=== PATIENT | female | born 1965 | race Caucasian/White ===

== ENCOUNTER → 2016-10-23 | Outpatient (CLI) | payer BC, OTHER ==
--- NOTE | 2016-10-23 16:32 | P.HPBAR ---
Bariatric H&P - History & Physicial H&P Date: 10/23/16 History & Physicial: Visit/CC: sleeve follow-up Patient initial contact: Initial weight: 113.2 kg Initial weight in pounds: 249.56 Height: 5 ft 4.5 in Initial BMI: 42.1 Last weight: Current weight: 101.321 kg Current weight in pounds: 223.00 Current BMI: 37.7 [place] body weight (based on NIH guidelines): 55.565 kg Excess body weight loss: 20.9% The patient is a 51 year-old F who presents for Bariatric Assessment. Patient presents for sleeve follow-up. She is doing well. She lost approximately 26 pounds since surgery. She still has some minimal GERD symptoms. Past Medical History Past Medical History: GERD/Reflux Additional Past Medical History / Comment(s): HIATAL HERNIA, VARICOSE VEINS. History of Any Multi-Drug Resistant Organisms: None Reported Past Surgical History: Section, Cholecystectomy, Uterine Ablation Additional Past Surgical History / Comment(s): 08/08/16 Laparoscopic sleeve gastrectomy with hiatal hernia repair. Other surgical HX: PILONIDAL CYST REMOVED,EGD, OVARIAN CYST. Past Anesthesia/Blood Transfusion Reactions: Postoperative Nausea & Vomiting ( PONV) Past Psychological History: No Psychological Hx Reported Additional Psychological History / Comment(s): Pt has an adult manish who lives with her. She is independent. She drives. Smoking Status: Current some day smoker Past Alcohol Use History: None Reported Additional Past Alcohol Use History / Comment(s): SMOKES OCCASIONALLY-1 pack will last a week or more. SMOKING ON AND OFF FOR 20 YEARS. Past Drug Use History: None Reported - Past Family History Father Family Medical History: No Reported History Sister(s) Additional Family Medical History / Comment(s): Crohn's and Colitis Mother Family Medical History: Cancer Additional Family Medical History / Comment(s): BLADDER CA Surgical - Exam Vital Signs Temp Pulse Resp BP 98.1 F 54 L 16 159/84 10/23/16 15:10 10/23/16 15:10 10/23/16 15:10 10/23/16 15:10 - General well developed, no distress - Eyes PERRL - ENT normal pinna - Neck no masses - Respiratory normal expansion - Cardiovascular Rhythm: regular - Abdomen Abdomen: soft, non tender Bariatric Assessment & Plan Plan: Status post sleeve gastrectomy. Patient is doing quite well. Her GERD symptoms will be observed. She'll follow-up one month. Bariatric Checklist Checklist: Plan: Checklist: EGD: 1. Hiatal hernia: 2. H. Pylori: HgbA1c: Vitamin D: Smoking: Current some day smoker Primary care physician referral: Dr. walker Psychiatry clearance: Cardiology clearance: Sleep study: Diet journal: VTE risk score: VTE risk level: Rehab needs at discharge:
== END | disposition home or self-care (01) ==
CPT/HCPCS: 99211

== ENCOUNTER → 2016-11-20 | Outpatient (CLI) | payer BC, OTHER ==
[2016-11-20 16:28] VITALS: BP 145/98; PULSE 16; RESP 16; TEMP 97; BMI 36.6
[2016-11-20 16:32] LABS: CH 30.8; CHCM 34.3; HCT 43.4 % (34.0-46.0); HDW 2.41; HGB 14.3 gm/dL (11.4-16.0); MCH 29.6 pg (25.0-35.0); MCHC 32.8 g/dL (31.0-37.0); MCV 90.2 fL (80.0-100.0); Mean Platelet Volume 7.9; RBC 4.81 m/uL (3.80-5.40); RDW 12.3 % (11.5-15.5); WBC 9.8 k/uL (3.8-10.6)
[2016-11-20 16:41] LABS: ALT 36 U/L (9-52); AST 18 U/L (14-36); Alkaline Phosphatase 66 U/L (38-126); Anion Gap 8 mmol/L; Blood Urea Nitrogen 14 mg/dL (7-17); Calcium 9.6 mg/dL (8.4-10.2); Carbon Dioxide 30 mmol/L (22-30); Chloride 103 mmol/L (98-107); Glucose 84 mg/dL (74-99); Non-African American GFR(MDRD) >60 (>60 ml/min/1.73 sqM); Potassium 4.2 mmol/L (3.5-5.1); Sodium 141 mmol/L (137-145); Total Bilirubin 0.4 mg/dL (0.2-1.3); Total Protein 7.1 g/dL (6.3-8.2)
[2016-11-20 16:50] LABS: Total Iron Binding Capacity 299 ug/dL (265-497)
--- NOTE | 2016-12-11 13:24 | P.HPBAR ---
Bariatric H&P - History & Physicial H&P Date: 11/20/16 History & Physicial: Visit/CC: Sleeve follow-up Patient initial contact: Initial weight: 113.2 kg Initial weight in pounds: 249.56 Height: 5 ft 4.5 in Initial BMI: 42.1 Last weight: Current weight: 98.43 kg Current weight in pounds: 217.00 Current BMI: 36.6 [place] body weight (based on NIH guidelines): 55.565 kg Excess body weight loss: 25.6% The patient is a 51 year-old F who presents for Bariatric Assessment. The patient lost prostate 5 pounds since her last visit. She's had some minimal GERD. Past Medical History Past Medical History: GERD/Reflux Additional Past Medical History / Comment(s): HIATAL HERNIA, VARICOSE VEINS. History of Any Multi-Drug Resistant Organisms: None Reported Past Surgical History: Section, Cholecystectomy, Uterine Ablation Additional Past Surgical History / Comment(s): 08/08/16 Laparoscopic sleeve gastrectomy with hiatal hernia repair. Other surgical HX: PILONIDAL CYST REMOVED,EGD, OVARIAN CYST. Past Anesthesia/Blood Transfusion Reactions: Postoperative Nausea & Vomiting ( PONV) Past Psychological History: No Psychological Hx Reported Additional Psychological History / Comment(s): Pt has an adult manish who lives with her. She is independent. She drives. Smoking Status: Current some day smoker Past Alcohol Use History: None Reported Additional Past Alcohol Use History / Comment(s): SMOKES OCCASIONALLY-1 pack will last a week or more. SMOKING ON AND OFF FOR 20 YEARS. Past Drug Use History: None Reported - Past Family History Father Family Medical History: No Reported History Sister(s) Additional Family Medical History / Comment(s): Crohn's and Colitis Mother Family Medical History: Cancer Additional Family Medical History / Comment(s): BLADDER CA Surgical - Exam Vital Signs Temp Pulse Resp BP 97.0 F L 16 L 16 145/98 11/20/16 16:08 11/20/16 16:08 11/20/16 16:08 11/20/16 16:08 - General well developed, no distress - Eyes PERRL - ENT normal pinna - Respiratory normal expansion - Cardiovascular Rhythm: regular - Abdomen Abdomen: soft, non tender Results - Labs 11/20/16 16:10 11/20/16 16:10 Bariatric Assessment & Plan Plan: The patient is doing well. Her GERD symptoms are minimal and will be observed. She'll follow-up in 2 months. Bariatric Checklist Checklist: Plan: Checklist: EGD: 1. Hiatal hernia: 2. H. Pylori: HgbA1c: Vitamin D: Smoking: Current some day smoker Primary care physician referral: Dr. walker Psychiatry clearance: Cardiology clearance: Sleep study: Diet journal: VTE risk score: VTE risk level: Rehab needs at discharge:
== END | disposition home or self-care (01) ==
LOC: BARWHC3 14:59
PROVIDERS: ATTEND Surgery
DX: Z48.815 Encounter for surgical aftercare following surgery on the digestive system (principal); Z71.3 Dietary counseling and surveillance; E66.01 Morbid (severe) obesity due to excess calories; Z68.36 Body mass index [BMI] 36.0-36.9, adult; Z98.84 Bariatric surgery status; F17.200 Nicotine dependence, unspecified, uncomplicated
CPT/HCPCS: 80053; 82306; 83550; 85027; 99211

== ENCOUNTER → 2016-12-18 | Outpatient (CLI) | payer BC, OTHER ==
[2016-12-18 16:14] LABS: CH 30.4; CHCM 33.1; HCT 43.6 % (34.0-46.0); HDW 2.29; HGB 14.2 gm/dL (11.4-16.0); MCH 29.9 pg (25.0-35.0); MCHC 32.5 g/dL (31.0-37.0); Mean Platelet Volume 7.1; RBC 4.74 m/uL (3.80-5.40); RDW 12.5 % (11.5-15.5); WBC 7.1 k/uL (3.8-10.6)
[2016-12-18 16:15] VITALS: BP 164/89; PULSE 92; RESP 16; TEMP 97.9; BMI 36.7
--- NOTE | 2016-12-18 16:19 | P.HPBAR ---
Bariatric H&P - History & Physicial H&P Date: 12/18/16 History & Physicial: Visit/CC: Sleeve follow-up Patient initial contact: Initial weight: 113.2 kg Initial weight in pounds: 249.56 Height: 5 ft 4.5 in Initial BMI: 42.1 Last weight: Current weight: 98.685 kg Current weight in pounds: 217.00 Current BMI: 36.7 [place] body weight (based on NIH guidelines): 55.565 kg Excess body weight loss: 25.6% The patient is a 51 year-old F who presents for Bariatric Assessment. She presents today for sleeve follow-up. She's had some mild complaints of GERD. Her weight has been stable she's not lost any weight in the last month. Past Medical History Past Medical History: GERD/Reflux Additional Past Medical History / Comment(s): HIATAL HERNIA, VARICOSE VEINS. History of Any Multi-Drug Resistant Organisms: None Reported Past Surgical History: Section, Cholecystectomy, Uterine Ablation Additional Past Surgical History / Comment(s): 08/08/16 Laparoscopic sleeve gastrectomy with hiatal hernia repair. Other surgical HX: PILONIDAL CYST REMOVED,EGD, OVARIAN CYST. Past Anesthesia/Blood Transfusion Reactions: Postoperative Nausea & Vomiting ( PONV) Past Psychological History: No Psychological Hx Reported Additional Psychological History / Comment(s): Pt has an adult manish who lives with her. She is independent. She drives. Smoking Status: Current some day smoker Past Alcohol Use History: None Reported Additional Past Alcohol Use History / Comment(s): SMOKES OCCASIONALLY-1 pack will last a week or more. SMOKING ON AND OFF FOR 20 YEARS. Past Drug Use History: None Reported - Past Family History Father Family Medical History: No Reported History Sister(s) Additional Family Medical History / Comment(s): Crohn's and Colitis Mother Family Medical History: Cancer Additional Family Medical History / Comment(s): BLADDER CA Surgical - Exam Vital Signs Temp Pulse Resp BP 97.9 F 92 16 164/89 12/18/16 16:09 12/18/16 16:09 12/18/16 16:09 12/18/16 16:09 - General well developed, no distress - Eyes PERRL - ENT normal pinna - Neck no masses - Respiratory normal expansion - Cardiovascular Rhythm: regular - Abdomen Abdomen: soft, non tender Results - Labs 12/18/16 15:53 Bariatric Assessment & Plan Plan: Status post sleeve gastrectomy. Patient is doing fairly well. She will watch her intake of high calorie liquids or soft food. Her GERD symptoms will be continued to be treated with omeprazole. Bariatric Checklist Checklist: Plan: Checklist: EGD: 1. Hiatal hernia: 2. H. Pylori: HgbA1c: Vitamin D: Smoking: Current some day smoker Primary care physician referral: Dr. walker Psychiatry clearance: Cardiology clearance: Sleep study: Diet journal: VTE risk score: VTE risk level: Rehab needs at discharge:
[2016-12-18 16:27] LABS: ALT 47 U/L (9-52); AST 23 U/L (14-36); Alkaline Phosphatase 64 U/L (38-126); Anion Gap 9 mmol/L; Blood Urea Nitrogen 17 mg/dL (7-17); Calcium 9.5 mg/dL (8.4-10.2); Carbon Dioxide 30 mmol/L (22-30); Chloride 100 mmol/L (98-107); Glucose 90 mg/dL (74-99); Non-African American GFR(MDRD) >60 (>60 ml/min/1.73 sqM); Potassium 4.4 mmol/L (3.5-5.1); Sodium 139 mmol/L (137-145); Total Bilirubin 0.5 mg/dL (0.2-1.3); Total Protein 6.8 g/dL (6.3-8.2)
[2016-12-18 17:29] LABS: Vitamin B12 535 pg/mL (239-931)
== END | disposition home or self-care (01) ==
LOC: BARWHC3 14:52
PROVIDERS: ATTEND Surgery
DX: Z48.815 Encounter for surgical aftercare following surgery on the digestive system (principal); Z98.84 Bariatric surgery status; K21.9 Gastro-esophageal reflux disease without esophagitis; E66.01 Morbid (severe) obesity due to excess calories; Z68.36 Body mass index [BMI] 36.0-36.9, adult; F17.200 Nicotine dependence, unspecified, uncomplicated; Z79.899 Other long term (current) drug therapy
CPT/HCPCS: 36415; 80053; 82306; 82607; 82746; 84425; 84590; 85027; 99211

== ENCOUNTER → 2017-02-05 | Outpatient (CLI) | payer BC, OTHER ==
[2017-02-05 15:08] VITALS: BP 125/65; PULSE 52; RESP 15; TEMP 98.2; BMI 35.9
--- NOTE | 2017-02-05 16:22 | P.HPBAR ---
Bariatric H&P - History & Physicial H&P Date: 02/05/17 History & Physicial: Visit/CC: sleeve f/u Patient initial contact: Initial weight: 113.2 kg Initial weight in pounds: 249.56 Height: 5 ft 4.5 in Initial BMI: 42.1 Last weight: Current weight: 96.298 kg Current weight in pounds: 212.30 Current BMI: 35.9 [place] body weight (based on NIH guidelines): 55.565 kg Excess body weight loss: 29.3% The patient is a 51 year-old F who presents for Bariatric Assessment. Patient rents today for sleeve gastrectomy fall. She's doing quite well. She's had good weight loss. She has some mild complaints of GERD Past Medical History Past Medical History: GERD/Reflux Additional Past Medical History / Comment(s): HIATAL HERNIA, VARICOSE VEINS. History of Any Multi-Drug Resistant Organisms: None Reported Past Surgical History: Section, Cholecystectomy, Uterine Ablation Additional Past Surgical History / Comment(s): 08/08/16 Laparoscopic sleeve gastrectomy with hiatal hernia repair. Other surgical HX: PILONIDAL CYST REMOVED,EGD, OVARIAN CYST. Past Anesthesia/Blood Transfusion Reactions: Postoperative Nausea & Vomiting ( PONV) Past Psychological History: No Psychological Hx Reported Additional Psychological History / Comment(s): Pt has an adult manish who lives with her. She is independent. She drives. Smoking Status: Current some day smoker Past Alcohol Use History: None Reported Additional Past Alcohol Use History / Comment(s): SMOKES OCCASIONALLY-1 pack will last a week or more. SMOKING ON AND OFF FOR 20 YEARS. Past Drug Use History: None Reported - Past Family History Father Family Medical History: No Reported History Sister(s) Additional Family Medical History / Comment(s): Crohn's and Colitis Mother Family Medical History: Cancer Additional Family Medical History / Comment(s): BLADDER CA Surgical - Exam Vital Signs Temp Pulse Resp BP 98.2 F 52 L 15 125/65 02/05/17 15:02 02/05/17 15:02 02/05/17 15:02 02/05/17 15:02 - General well developed - Neck no masses - Respiratory normal expansion - Cardiovascular Rhythm: regular - Abdomen Abdomen: soft, non tender Bariatric Assessment & Plan Plan: Status post sleeve yesterday. Patient doing quite well. Her GERD symptoms are minimal and will be observed. She'll follow-up in one month. Bariatric Checklist Checklist: Plan: Checklist: EGD: 1. Hiatal hernia: 2. H. Pylori: HgbA1c: Vitamin D: Smoking: Current some day smoker Primary care physician referral: Dr. walker Psychiatry clearance: Cardiology clearance: Sleep study: Diet journal: VTE risk score: VTE risk level: Rehab needs at discharge:
[2017-02-05 16:43] LABS: CHCM 34.7; HCT 42.6 % (34.0-46.0); HDW 2.34; HGB 14.8 gm/dL (11.4-16.0); MCH 31.1 pg (25.0-35.0); MCHC 34.6 g/dL (31.0-37.0); MCV 89.6 fL (80.0-100.0); Mean Platelet Volume 6.9; RBC 4.75 m/uL (3.80-5.40); RDW 12.1 % (11.5-15.5); WBC 6.6 k/uL (3.8-10.6)
[2017-02-05 16:53] LABS: ALT 35 U/L (9-52); AST 19 U/L (14-36); Alkaline Phosphatase 59 U/L (38-126); Anion Gap 8 mmol/L; Blood Urea Nitrogen 17 mg/dL (7-17); Calcium 9.5 mg/dL (8.4-10.2); Carbon Dioxide 29 mmol/L (22-30); Chloride 102 mmol/L (98-107); Glucose 88 mg/dL (74-99); Iron 84 ug/dL (37-170); Non-African American GFR(MDRD) >60 (>60 ml/min/1.73 sqM); Potassium 4.4 mmol/L (3.5-5.1); Sodium 139 mmol/L (137-145); Total Bilirubin 0.6 mg/dL (0.2-1.3); Total Protein 7.2 g/dL (6.3-8.2)
[2017-02-05 17:03] LABS: % Iron Saturation 27.8 % (20-50); Prealbumin 27 mg/dL (18-36); Total Iron Binding Capacity 302 ug/dL (265-497)
[2017-02-05 17:41] LABS: Vitamin B12 572 pg/mL (239-931)
== END | disposition home or self-care (01) ==
LOC: BARWHC3 14:44
PROVIDERS: ATTEND Surgery
DX: K21.9 Gastro-esophageal reflux disease without esophagitis (principal); Z98.84 Bariatric surgery status; E55.9 Vitamin D deficiency, unspecified; E66.01 Morbid (severe) obesity due to excess calories
CPT/HCPCS: 80053; 82306; 82607; 83540; 83550; 84134; 84425; 84590; 85027; 97803; 99211

== ENCOUNTER 2017-03-03 21:34 | Emergency (ER) | payer BC, OTHER ==
[2017-03-03 21:42] VITALS: RESP 18
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
--- NOTE | 2017-03-03 22:27 | XR ---
EXAM: XR Left Wrist Complete, 3 or More Views. CLINICAL HISTORY: Reason: Pain TECHNIQUE: Frontal, lateral and oblique views of the left wrist. COMPARISON: No relevant prior studies available. FINDINGS: Bones: Unremarkable. No acute fracture. Joints: Unremarkable. No dislocation. Soft tissues: Unremarkable. No radiopaque foreign body. IMPRESSION: Normal left wrist.
--- NOTE | 2017-03-03 22:31 | XR ---
EXAM: XR Left Hand Complete, 3 or More Views. CLINICAL HISTORY: Reason: Pain TECHNIQUE: Frontal, lateral and oblique views of the left hand. COMPARISON: No relevant prior studies available. FINDINGS: Bones: Unremarkable. No acute fracture. Joints: Unremarkable. No dislocation. Soft tissues: Unremarkable. No radiopaque foreign body. IMPRESSION: Normal left hand.
[2017-03-03 23:07] VITALS: BP 132/64; PULSE 56; TEMP 97.9
== END 2017-03-03 23:07 | disposition home or self-care (01) ==
LOC: EC 21:34
DX: S63.92XA Sprain of unspecified part of left wrist and hand, initial encounter (principal); F17.200 Nicotine dependence, unspecified, uncomplicated; Z79.899 Other long term (current) drug therapy; Z88.6 Allergy status to analgesic agent; Z91.013 Allergy to seafood; Y08.89XA Assault by other specified means, initial encounter
CPT/HCPCS: 99283

== ENCOUNTER → 2017-04-02 | Outpatient (CLI) | payer BC, OTHER ==
[2017-04-02 16:31] VITALS: BP 122/84; PULSE 58; RESP 16; TEMP 97.9; BMI 34.6
--- NOTE | 2017-04-16 17:02 | P.HPBAR ---
Bariatric H&P - History & Physicial H&P Date: 04/02/17 History & Physicial: Visit/CC: sleeve f/u Patient initial contact: Initial weight: 113.2 kg Initial weight in pounds: 249.56 Height: 5 ft 4.5 in Initial BMI: 42.1 Last weight: Current weight: 92.986 kg Current weight in pounds: 205.00 Current BMI: 34.6 [place] body weight (based on NIH guidelines): 55.565 kg Excess body weight loss: 35.0% The patient is a 51 year-old F who presents for Bariatric Assessment. The patient is status post sleeve gastrectomy. She is doing quite well. She has lost another 8 pounds. She's has mild GERD. Past Medical History Past Medical History: GERD/Reflux Additional Past Medical History / Comment(s): HIATAL HERNIA, VARICOSE VEINS. History of Any Multi-Drug Resistant Organisms: None Reported Past Surgical History: Section, Cholecystectomy, Uterine Ablation Additional Past Surgical History / Comment(s): 08/08/16 Laparoscopic sleeve gastrectomy with hiatal hernia repair. Other surgical HX: PILONIDAL CYST REMOVED,EGD, OVARIAN CYST. Past Anesthesia/Blood Transfusion Reactions: Postoperative Nausea & Vomiting ( PONV) Past Psychological History: No Psychological Hx Reported Additional Psychological History / Comment(s): Pt has an adult manish who lives with her. She is independent. She drives. Smoking Status: Current some day smoker Past Alcohol Use History: None Reported Additional Past Alcohol Use History / Comment(s): SMOKES OCCASIONALLY-1 pack will last a week or more. SMOKING ON AND OFF FOR 20 YEARS. Past Drug Use History: None Reported - Past Family History Father Family Medical History: No Reported History Sister(s) Additional Family Medical History / Comment(s): Crohn's and Colitis Mother Family Medical History: Cancer Additional Family Medical History / Comment(s): BLADDER CA Surgical - Exam Vital Signs Temp Pulse Resp BP 97.9 F 58 L 16 122/84 04/02/17 15:37 04/02/17 15:37 04/02/17 15:37 04/02/17 15:37 - General well developed - Abdomen Abdomen: soft, non tender Bariatric Assessment & Plan Plan: Status post sleeve yesterday. Patient doing quite well. Her GERD symptoms will be observed. Bariatric Checklist Checklist: Plan: Checklist: EGD: 1. Hiatal hernia: 2. H. Pylori: HgbA1c: Vitamin D: Smoking: Current some day smoker Primary care physician referral: Dr. walker Psychiatry clearance: Cardiology clearance: Sleep study: Diet journal: VTE risk score: VTE risk level: Rehab needs at discharge:
== END | disposition home or self-care (01) ==
LOC: BARWHC3 13:30
PROVIDERS: ATTEND Surgery
DX: Z09 Encounter for follow-up examination after completed treatment for conditions other than malignant neoplasm (principal); K21.9 Gastro-esophageal reflux disease without esophagitis; F17.200 Nicotine dependence, unspecified, uncomplicated; Z98.84 Bariatric surgery status
CPT/HCPCS: 99211

== ENCOUNTER → 2017-06-04 | Outpatient (CLI) | payer BC, OTHER ==
[2017-06-04 13:14] VITALS: BP 117/75; PULSE 72; RESP 20; TEMP 98.3; BMI 34.2
[2017-06-04 14:33] LABS: CH 31.7; CHCM 34.3; HCT 46.9 % (34.0-46.0); HDW 2.24; HGB 15.6 gm/dL (11.4-16.0); MCH 30.9 pg (25.0-35.0); MCHC 33.3 g/dL (31.0-37.0); MCV 92.9 fL (80.0-100.0); Mean Platelet Volume 8.1; RBC 5.05 m/uL (3.80-5.40); RDW 13.6 % (11.5-15.5); WBC 8.6 k/uL (3.8-10.6)
[2017-06-04 14:38] LABS: INR 1.1 (<1.2); Prothrombin Time 11.3 sec (9.0-12.0)
--- NOTE | 2017-06-04 14:43 | P.HPBAR ---
Bariatric H&P - History & Physicial H&P Date: 06/04/17 History & Physicial: Visit/CC: follow up Patient initial contact: Initial weight: 113.2 kg Initial weight in pounds: 249.56 Height: 5 ft 4.5 in Initial BMI: 42.1 Last weight: 205 Current weight: 92.079 kg Current weight in pounds: 203.00 Current BMI: 34.2 [place] body weight (based on NIH guidelines): 55.565 kg Excess body weight loss: 36.6% The patient is a 52 year-old F who presents for Bariatric Assessment. Patient presents today for sleeve gastrectomy follow-up. She has no significant complaints. She's had some mild GERD. She is requesting a refill of her Prilosec. Past Medical History Past Medical History: GERD/Reflux Additional Past Medical History / Comment(s): HIATAL HERNIA, VARICOSE VEINS. History of Any Multi-Drug Resistant Organisms: None Reported Past Surgical History: Section, Cholecystectomy, Uterine Ablation Additional Past Surgical History / Comment(s): 08/08/16 Laparoscopic sleeve gastrectomy with hiatal hernia repair. Other surgical HX: PILONIDAL CYST REMOVED,EGD, OVARIAN CYST. Past Anesthesia/Blood Transfusion Reactions: Postoperative Nausea & Vomiting ( PONV) Smoking Status: Former smoker - Past Family History Father Family Medical History: No Reported History Sister(s) Additional Family Medical History / Comment(s): Crohn's and Colitis Mother Family Medical History: Cancer Additional Family Medical History / Comment(s): BLADDER CA Surgical - Exam Vital Signs Temp Pulse Resp BP 98.3 F 72 20 117/75 06/04/17 13:11 06/04/17 13:11 06/04/17 13:11 06/04/17 13:11 - General well developed, no distress - Eyes PERRL - Abdomen Abdomen: soft, non tender Bariatric Assessment & Plan Plan: Status post sleeve yesterday. Patient's had good weight loss. Her Prilosec will be reordered. She'll follow-up in one month. Bariatric Checklist Checklist: Plan: Checklist: EGD: 1. Hiatal hernia: 2. H. Pylori: HgbA1c: Vitamin D: Smoking: Former smoker Primary care physician referral: Dr. walker Psychiatry clearance: Cardiology clearance: Sleep study: Diet journal: VTE risk score: VTE risk level: Rehab needs at discharge:
[2017-06-04 14:50] LABS: ALT 33 U/L (9-52); AST 23 U/L (14-36); Alkaline Phosphatase 64 U/L (38-126); Anion Gap 9 mmol/L; Blood Urea Nitrogen 17 mg/dL (7-17); Calcium 9.7 mg/dL (8.4-10.2); Carbon Dioxide 25 mmol/L (22-30); Chloride 104 mmol/L (98-107); Glucose 88 mg/dL (74-99); Non-African American GFR(MDRD) >60 (>60 ml/min/1.73 sqM); Potassium 4.4 mmol/L (3.5-5.1); Sodium 138 mmol/L (137-145); Total Bilirubin 0.5 mg/dL (0.2-1.3); Total Protein 6.8 g/dL (6.3-8.2)
[2017-06-04 15:39] LABS: Vitamin B12 595 pg/mL (239-931)
== END | disposition home or self-care (01) ==
LOC: BARWHC3 12:56
PROVIDERS: ATTEND Surgery
DX: Z09 Encounter for follow-up examination after completed treatment for conditions other than malignant neoplasm (principal); K21.9 Gastro-esophageal reflux disease without esophagitis; E66.01 Morbid (severe) obesity due to excess calories; Z98.84 Bariatric surgery status; Z87.891 Personal history of nicotine dependence
CPT/HCPCS: 80053; 82306; 82607; 84425; 85027; 85610; 99211

== ENCOUNTER → 2017-06-16 | Outpatient (CLI) | payer BC, OTHER ==
--- NOTE | 2017-06-18 11:16 | MM ---
Reason for exam: screening (asymptomatic). Last mammogram was performed 1 year and 2 months ago. History: Patient had first child at age 33. Family history of breast cancer in 2 maternal aunts. Physical Findings: A clinical breast exam by your physician is recommended on an annual basis and results should be correlated with mammographic findings. MG Screening Mammo w CAD Bilateral CC and MLO view(s) were taken. Prior study comparison: April 27, 2016, bilateral MG screening mammo w CAD. October 14, 2013, bilateral digital screening mammo w/CAD. June 02, 2011, bilateral digital screening mammo w/CAD. There are scattered fibroglandular densities. There is chronic nodularity bilaterally. No significant changes when compared with prior studies. ASSESSMENT: Benign, BI-RAD 2 RECOMMENDATION: Routine screening mammogram of both breasts in 1 year.
== END | disposition home or self-care (01) ==
LOC: RADMAMWWP 09:25
PROVIDERS: ATTEND Obstetrics & Gynecology
DX: Z12.31 Encounter for screening mammogram for malignant neoplasm of breast (principal)

== ENCOUNTER → 2017-08-13 | Outpatient (CLI) | payer BC, OTHER ==
[2017-08-13 13:49] VITALS: BMI 33.7
[2017-08-13 15:00] VITALS: BP 119/87; PULSE 68; TEMP 97.5
--- NOTE | 2017-08-13 16:15 | P.HPBAR ---
Bariatric H&P - History & Physicial H&P Date: 08/13/17 History & Physicial: Visit/CC: Patient initial contact: Initial weight: 113.2 kg Initial weight in pounds: 249.56 Height: 5 ft 4.5 in Initial BMI: 42.1 Last weight: Current weight: 90.764 kg Current weight in pounds: 200.10 Current BMI: 33.7 [place] body weight (based on NIH guidelines): 55.565 kg Excess body weight loss: 38.9% The patient is a 52 year-old F who presents for Bariatric Assessment. The patient presents today for sleeve gastrectomy follow-up. She has complaints of constipation. She's had some minimal GERD. Past Medical History Past Medical History: GERD/Reflux Additional Past Medical History / Comment(s): HIATAL HERNIA, VARICOSE VEINS. History of Any Multi-Drug Resistant Organisms: None Reported Past Surgical History: Section, Cholecystectomy, Uterine Ablation Additional Past Surgical History / Comment(s): 08/08/16 Laparoscopic sleeve gastrectomy with hiatal hernia repair. Other surgical HX: PILONIDAL CYST REMOVED,EGD, OVARIAN CYST. Past Anesthesia/Blood Transfusion Reactions: Postoperative Nausea & Vomiting ( PONV) Past Psychological History: No Psychological Hx Reported Additional Psychological History / Comment(s): Pt has an adult manish who lives with her. She is independent. She drives. Smoking Status: Former smoker Past Alcohol Use History: None Reported Additional Past Alcohol Use History / Comment(s): SMOKES OCCASIONALLY-1 pack will last a week or more. SMOKING ON AND OFF FOR 20 YEARS. Past Drug Use History: None Reported - Past Family History Father Family Medical History: No Reported History Sister(s) Additional Family Medical History / Comment(s): Crohn's and Colitis Mother Family Medical History: Cancer Additional Family Medical History / Comment(s): BLADDER CA Surgical - Exam Vital Signs Temp Pulse BP 97.5 F L 68 119/87 08/13/17 14:58 08/13/17 14:58 08/13/17 14:58 - General well developed, no distress - Eyes PERRL - ENT normal pinna - Neck no masses - Respiratory normal expansion - Cardiovascular Rhythm: regular - Abdomen Abdomen: soft, non tender Bariatric Assessment & Plan Plan: The patient was instructed to increase her water intake. She will trial Metamucil or Benefiber. Her GERD symptoms are minimal and will be observed. She'll follow-up in one month. Bariatric Checklist Checklist: Plan: Checklist: EGD: 1. Hiatal hernia: 2. H. Pylori: HgbA1c: Vitamin D: Smoking: Former smoker Primary care physician referral: Dr. walker Psychiatry clearance: Cardiology clearance: Sleep study: Diet journal: VTE risk score: VTE risk level: Rehab needs at discharge:
== END | disposition home or self-care (01) ==
LOC: BARWHC3 12:53
PROVIDERS: ATTEND Surgery
DX: Z48.815 Encounter for surgical aftercare following surgery on the digestive system (principal); K21.9 Gastro-esophageal reflux disease without esophagitis; E66.01 Morbid (severe) obesity due to excess calories; Z87.891 Personal history of nicotine dependence; Z98.84 Bariatric surgery status
CPT/HCPCS: 97803; G0463; 99211

== ENCOUNTER → 2017-11-12 | Outpatient (CLI) | payer BC ==
[2017-11-12 13:43] VITALS: BP 134/82; PULSE 65; RESP 15; BMI 32.8
[2017-11-12 14:57] LABS: HCT 46.4 % (34.0-46.0); HGB 15.4 gm/dL (11.4-16.0); MCH 30.4 pg (25.0-35.0); MCHC 33.2 g/dL (31.0-37.0); MCV 91.5 fL (80.0-100.0); Mean Platelet Volume 6.9; Platelet Count 224 k/uL (150-450); RBC 5.07 m/uL (3.80-5.40); RDW 12.1 % (11.5-15.5); WBC 10.5 k/uL (3.8-10.6)
[2017-11-12 15:10] LABS: ALT 27 U/L (9-52); AST 16 U/L (14-36); Albumin 4.4 g/dL (3.5-5.0); Alkaline Phosphatase 62 U/L (38-126); Anion Gap 11 mmol/L; Blood Urea Nitrogen 12 mg/dL (7-17); Calcium 9.7 mg/dL (8.4-10.2); Carbon Dioxide 27 mmol/L (22-30); Chloride 103 mmol/L (98-107); Glucose 90 mg/dL (74-99); Sodium 141 mmol/L (137-145); Total Bilirubin 0.6 mg/dL (0.2-1.3); Total Protein 7.2 g/dL (6.3-8.2)
[2017-11-12 15:14] LABS: Potassium 4.2 mmol/L (3.5-5.1)
--- NOTE | 2017-11-12 15:50 | P.HPBAR ---
Bariatric H&P - History & Physicial H&P Date: 11/12/17 History & Physicial: Visit/CC: sleeve 15 mos. f/u (sx Aug 2016) Patient initial contact: Initial weight: 113.2 kg Initial weight in pounds: 249.56 Height: 5 ft 4.5 in Initial BMI: 42.1 Last weight: Current weight: 87.952 kg Current weight in pounds: 193.90 Current BMI: 32.8 [place] body weight (based on NIH guidelines): 55.565 kg Excess body weight loss: 43.8% The patient is a 52 year-old F who presents for Bariatric Assessment. Patient presents today for sleeve gastrectomy follow-up. She has no significant complaints. She's lost 6 pounds her last visit. She has some minimal GERD. She's lost a total of 60 pounds since her surgery. Past Medical History Past Medical History: GERD/Reflux Additional Past Medical History / Comment(s): HIATAL HERNIA, VARICOSE VEINS. History of Any Multi-Drug Resistant Organisms: None Reported Past Surgical History: Section, Cholecystectomy, Uterine Ablation Additional Past Surgical History / Comment(s): 08/08/16 Laparoscopic sleeve gastrectomy with hiatal hernia repair. Other surgical HX: PILONIDAL CYST REMOVED,EGD, OVARIAN CYST. Past Anesthesia/Blood Transfusion Reactions: Postoperative Nausea & Vomiting ( PONV) Past Psychological History: No Psychological Hx Reported Additional Psychological History / Comment(s): Pt has an adult manish who lives with her. She is independent. She drives. Smoking Status: Former smoker Past Alcohol Use History: None Reported Additional Past Alcohol Use History / Comment(s): SMOKES OCCASIONALLY-1 pack will last a week or more. SMOKING ON AND OFF FOR 20 YEARS. Past Drug Use History: None Reported - Past Family History Father Family Medical History: No Reported History Sister(s) Additional Family Medical History / Comment(s): Crohn's and Colitis Mother Family Medical History: Cancer Additional Family Medical History / Comment(s): BLADDER CA Surgical - Exam Vital Signs Pulse Resp BP 65 15 134/82 11/12/17 13:30 11/12/17 13:30 11/12/17 13:30 - General well developed, no distress - Eyes PERRL - ENT normal pinna - Neck no masses - Respiratory normal expansion - Cardiovascular Rhythm: regular - Abdomen Abdomen: soft, non tender Results - Labs 11/12/17 14:17 11/12/17 14:17 Abnormal Lab Results - Last 24 Hours (Table) 11/12/17 Range/Units 14:17 Hct 46.4 H (34.0-46.0) % Diabetes panel 11/12/17 Range/Units 14:17 Sodium 141 (137-145) mmol/L Potassium 4.2 (3.5-5.1) mmol/L Chloride 103 (98-107) mmol/L Carbon Dioxide 27 (22-30) mmol/L BUN 12 (7-17) mg/dL Creatinine 0.70 (0.52-1.04) mg/dL Glucose 90 (74-99) mg/dL Calcium 9.7 (8.4-10.2) mg/dL AST 16 (14-36) U/L ALT 27 (9-52) U/L Alkaline Phosphatase 62 (38-126) U/L Total Protein 7.2 (6.3-8.2) g/dL Albumin 4.4 (3.5-5.0) g/dL Thyroid panel 11/12/17 Range/Units 14:17 TSH 1.170 (0.465-4.680) mIU/L Calcium panel 11/12/17 Range/Units 14:17 Calcium 9.7 (8.4-10.2) mg/dL Albumin 4.4 (3.5-5.0) g/dL Pituitary panel 11/12/17 Range/Units 14:17 Sodium 141 (137-145) mmol/L Potassium 4.2 (3.5-5.1) mmol/L Chloride 103 (98-107) mmol/L Carbon Dioxide 27 (22-30) mmol/L BUN 12 (7-17) mg/dL Creatinine 0.70 (0.52-1.04) mg/dL Glucose 90 (74-99) mg/dL Calcium 9.7 (8.4-10.2) mg/dL TSH 1.170 (0.465-4.680) mIU/L Adrenal panel 11/12/17 Range/Units 14:17 Sodium 141 (137-145) mmol/L Potassium 4.2 (3.5-5.1) mmol/L Chloride 103 (98-107) mmol/L Carbon Dioxide 27 (22-30) mmol/L BUN 12 (7-17) mg/dL Creatinine 0.70 (0.52-1.04) mg/dL Glucose 90 (74-99) mg/dL Calcium 9.7 (8.4-10.2) mg/dL Total Bilirubin 0.6 (0.2-1.3) mg/dL AST 16 (14-36) U/L ALT 27 (9-52) U/L Alkaline Phosphatase 62 (38-126) U/L Total Protein 7.2 (6.3-8.2) g/dL Albumin 4.4 (3.5-5.0) g/dL Bariatric Assessment & Plan Plan: Status post sleeve yesterday. Patient did quite well. Her GERD symptoms are minimal and will be observed. She'll follow-up in one month. Bariatric Checklist Checklist: Plan: Checklist: EGD: 1. Hiatal hernia: 2. H. Pylori: HgbA1c: Vitamin D: Smoking: Former smoker Primary care physician referral: Dr. walker Psychiatry clearance: Cardiology clearance: Sleep study: Diet journal: VTE risk score: VTE risk level: Rehab needs at discharge:
[2017-11-12 19:21] LABS: Vitamin D 25 Hydroxy 42.8 ng/mL (30.0-100.0)
[2017-11-12 19:50] LABS: Folate, Serum >24.0 ng/mL
[2017-11-12 22:18] LABS: Hemoglobin A1C 5.4 % (4.0-6.0)
== END | disposition home or self-care (01) ==
LOC: BARWHC3 13:16
PROVIDERS: ATTEND Surgery
DX: Z48.815 Encounter for surgical aftercare following surgery on the digestive system (principal); K21.9 Gastro-esophageal reflux disease without esophagitis; E66.01 Morbid (severe) obesity due to excess calories; Z71.3 Dietary counseling and surveillance; E89.1 Postprocedural hypoinsulinemia; E44.0 Moderate protein-calorie malnutrition; E55.9 Vitamin D deficiency, unspecified; Z98.84 Bariatric surgery status; Z68.32 Body mass index [BMI] 32.0-32.9, adult; Z87.891 Personal history of nicotine dependence
CPT/HCPCS: 36415; 80053; 82306; 82607; 82746; 83036; 84134; 84425; 84443; 85027; 97803; 99211

== ENCOUNTER → 2018-09-23 | Outpatient (CLI) | payer OTHER ==
--- NOTE | 2018-09-24 11:15 | MM ---
Reason for exam: screening (asymptomatic). Last mammogram was performed 1 year and 3 months ago. History: Patient had first child at age 33. Family history of breast cancer in 2 maternal aunts. Physical Findings: A clinical breast exam by your physician is recommended on an annual basis and results should be correlated with mammographic findings. MG Screening Mammo w CAD Bilateral CC and MLO view(s) were taken. Prior study comparison: June 16, 2017, bilateral MG screening mammo w CAD. April 27, 2016, bilateral MG screening mammo w CAD. There are scattered fibroglandular densities. No suspicious abnormality. No significant changes when compared with prior studies. ASSESSMENT: Negative, BI-RAD 1 RECOMMENDATION: Routine screening mammogram of both breasts in 1 year.
== END | disposition home or self-care (01) ==
LOC: RADMAMWWP 09:03
PROVIDERS: ATTEND Obstetrics & Gynecology
DX: Z12.31 Encounter for screening mammogram for malignant neoplasm of breast (principal)
CPT/HCPCS: 77067

== ENCOUNTER 2019-11-24 12:42 | Emergency (ER) | payer OTHER ==
[2019-11-24] MEDS ORDERED: ONDANSETRON 4 MG/2 ML VIAL IVP STA (12:59)
[2019-11-24] MEDS ORDERED: SODIUM CHLORIDE 0.9% 1,000 ML IV ONE (12:59)
[2019-11-24] MEDS ORDERED: SODIUM CHLORIDE 0.9% 1,000 ML IV SCH (13:00)
[2019-11-24 14:10] LABS: ALT 19 U/L (4-34); AST 25 U/L (14-36); African American GFR (CKD) >90 (>60 ml/min/1.73 sqM); Albumin 4.2 g/dL (3.5-5.0); Alkaline Phosphatase 74 U/L (38-126); Amylase 67 U/L (30-110); Anion Gap 8 mmol/L; Basophils # (A) 0.1 k/uL (0-0.2); Basophils % (A) 2 %; Blood Urea Nitrogen 12 mg/dL (7-17); Calcium 8.8 mg/dL (8.4-10.2); Carbon Dioxide 23 mmol/L (22-30); Chloride 106 mmol/L (98-107); Eosinophils # (A) 0.2 k/uL (0-0.7); Eosinophils % (A) 2 %; Glucose 94 mg/dL (74-99); HCT 45.8 % (34.0-46.0); HGB 15.3 gm/dL (11.4-16.0); Lymphocytes # (A) 2.1 k/uL (1.0-4.8); Lymphocytes % (A) 29 %; MCH 30.1 pg (25.0-35.0); MCHC 33.5 g/dL (31.0-37.0); MCV 89.8 fL (80.0-100.0); Mean Platelet Volume 8.4; Monocytes # (A) 0.4 k/uL (0-1.0); Monocytes % (A) 5 %; Neutrophils # (A) 4.4 k/uL (1.3-7.7); Neutrophils % (A) 60 %; Non-African American GFR(CKD) >90 (>60 ml/min/1.73 sqM); Platelet Count 171 k/uL (150-450); Potassium 3.5 mmol/L (3.5-5.1); RDW 12.4 % (11.5-15.5); Sodium 137 mmol/L (137-145); Total Bilirubin 0.7 mg/dL (0.2-1.3); Total Protein 7.1 g/dL (6.3-8.2); WBC 7.3 k/uL (3.8-10.6)
--- NOTE | 2019-11-24 14:21 | CT ---
EXAMINATION TYPE: CT abdomen pelvis w con DATE OF EXAM: 11/24/2019 COMPARISON: None HISTORY: LLQ pain CT DLP: 1634.1 mGycm CONTRAST: CT scan of the abdomen and pelvis is performed without Oral Contrast and with IV Contrast, patient in jected with 100 mL of Isovue 300. FINDINGS: LUNG BASES-: No visible nodule. No infiltrate. LIVER/GB: The gallbladder surgically absent. No space occupying hepatic lesion. Biliary tree is of normal caliber. PANCREAS: No inflammation. No distinct mass. SPLEEN: No splenic enlargement. No lesion seen. ADRENALS: No nodule. No thickening. KIDNEYS/BLADDER: No hydronephrosis. No nephrolithiasis. No distinct renal mass. Urinary bladder g rossly unremarkable. BOWEL: Normal appendix. Normal bowel caliber. No inflammation. Sigmoid diverticulosis without diver ticulitis. GENITAL ORGANS: Left ovarian cyst measures 2.5 cm. Uterus and right ovary are unremarkable. No free fluid identified within the pelvis. LYMPH NODES: No greater than 1cm abdominal or pelvic lymph nodes are appreciated. AORTA: No significant abnormality. OSSEOUS STRUCTURES: No significant abnormality is seen. OTHER: No significant additional abnormality is seen. IMPRESSION: 1. Sigmoid diverticulosis without diverticulitis. No acute inflammatory process identified. 2. Nonspecific cyst left ovary may be functional in nature. Consider ultrasound correlation in 4-6 we eks.
[2019-11-24 14:43] VITALS: BP 160/92; PULSE 83; RESP 18; TEMP 98
[2019-11-24] MEDS ORDERED: ACET/COD 300 MG/30 MG STARTER PACK 6 TAB BTL PO STA (14:52)
--- NOTE | 2019-11-24 14:53 | ED ---
Nausea/Vomiting/Diarrhea HPI - General Chief complaint: Nausea/Vomiting/Diarrhea Stated complaint: abd pain Time Seen by Provider: 11/24/19 12:49 Source: patient Mode of arrival: ambulatory Limitations: no limitations - History of Present Illness Initial comments: 54-year-old female presenting today for chief complaint of left lower quadrant abdominal pain, diarrhea x4 days. Patient states since Sunday she has had diffuse abdominal pain mostly left-sided comparison with right as well as diarrhea and has had one episode of vomiting. Patient states she has felt nauseous at times and had chills. Patient states the pain is fluctuated on off has not been constant. Patient states the pain returned this morning she decided it is best that she presented to the emergency department for evaluation. Patient denies any fevers denies any melena or hematochezia hematemesis chest pain, back or flank pain shortness of breath, dysuria, urgency frequency or vaginal bleeding. Patient has no known history of diverticulosis. Patient appears well on arrival, no signs of distress however BP in noted to be elevated. - Related Data Home Medications Medication Instructions Recorded Confirmed Ascorbic Acid [Vitamin C] 500 mg PO DAILY 02/29/16 08/13/17 Multivitamin/Iron/Folic Acid 1 tab PO DAILY 02/29/16 08/13/17 [Centrum Complete Multivit Tab] diphenhydrAMINE [Benadryl] 25 mg PO DAILY PRN 02/29/16 08/13/17 Cholecalciferol (Vitamin D3) 50,000 unit PO DAILY 02/05/17 08/13/17 [Vitamin D3] Previous Rx's Medication Instructions Recorded Omeprazole 40 mg PO DAILY #60 capsule. 06/04/17 Amoxic-Pot Clav 875-125Mg 1 tab PO Q12HR 7 Days #14 tablet 11/24/19 [Augmentin 875-125] Allergies Allergy/AdvReac Type Severity Reaction Status Date / Time ibuprofen [From Motrin] Allergy Rash/Hives Verified 11/24/19 12:45 shellfish derived [Shrimp] Allergy Unknown Verified 11/24/19 12:45 Review of Systems ROS Statement: Those systems with pertinent positive or pertinent negative responses have been documented in the HPI. ROS Other: All systems not noted in ROS Statement are negative. Past Medical History Past Medical History: GERD/Reflux Additional Past Medical History / Comment(s): HIATAL HERNIA, VARICOSE VEINS. History of Any Multi-Drug Resistant Organisms: None Reported Past Surgical History: Section, Cholecystectomy, Uterine Ablation Additional Past Surgical History / Comment(s): 08/08/16 Laparoscopic sleeve gastrectomy with hiatal hernia repair. Other surgical HX: PILONIDAL CYST REMOVED,EGD, OVARIAN CYST. Past Anesthesia/Blood Transfusion Reactions: Postoperative Nausea & Vomiting (PONV) Past Psychological History: No Psychological Hx Reported Smoking Status: Current some day smoker Past Alcohol Use History: None Reported Past Drug Use History: None Reported - Past Family History Father Family Medical History: No Reported History Sister(s) Additional Family Medical History / Comment(s): Crohn's and Colitis Mother Family Medical History: Cancer Additional Family Medical History / Comment(s): BLADDER CA General Exam - General Exam Comments Initial Comments: General: The patient is awake and alert, in no distress Eye: +3 mm pupils are equal, round and reactive to light, extra-ocular movements are intact. No nystagmus. There is normal conjunctiva bilaterally. No signs of icterus. Ears, nose, mouth and throat: There are moist mucous membranes and no oral lesions. Neck: The neck is supple, there is no tenderness or JVD. Cardiovascular: There is a regular rate and rhythm. No murmur, rub or gallop is appreciated. Respiratory: Lungs are clear to auscultation, respirations are non-labored, breath sounds are equal. No wheezes, stridor, rales, or rhonchi. Gastrointestinal: Soft, non-distended, mild appearing lower abdominal pain, L> R to palpation remaining abdomen is nontender and without masses or organomegaly noted. There is no rebound or guarding present. Musculoskeletal: Normal ROM, no tenderness. Strength 5/5. Sensation intact. Radial pulses equal bilaterally 2+. Neurological: A&O x 3. CN II-XII intact grossly, There are no obvious motor or sensory deficits. Coordination appears grossly intact. Speech is normal. Skin: Skin is warm and dry and no rashes or lesions are noted. Psychiatric: Cooperative, appropriate mood & affect, normal judgment. Limitations: no limitations Course Vital Signs 11/24/19 11/24/19 12:45 14:41 Temperature 97.9 F 98.0 F Pulse Rate 65 83 Respiratory 16 18 Rate Blood Pressure 157/118 160/92 O2 Sat by Pulse 99 99 Oximetry Medical Decision Making - Medical Decision Making 54-year-old female presenting for lower abdominal pain diarrhea one episode of vomiting. Patient is mild appearance abdominal pain on physical examination. No leukocytosis electrolytes within normal limits. Computed tomography scan revealed diverticulosis without diverticulitis noted. Patient did have left ovarian cyst however this a small 2.5 cm with no free fluid in the pelvis. I discussed findings of labs/CT and PE with attending Dr. Young, he is agreeable to discharge with augmentin to cover if there is a developing diverticulitis that isnt well pronounced on CT, as well as f/u with [facility] for cyst and GI, with recommendation for colonoscopy. Return parameters were discussed at length the patient who verbalized understanding the patient was discharged appeared well--agreeable to care plan. recommended f/u for patient elevated BP in 1-2 days. - Lab Data Result diagrams: 11/24/19 13:15 11/24/19 13:15 Lab Results 11/24/19 11/24/19 Range/Units 13:15 13:15 WBC 7.3 (3.8-10.6) k/uL RBC 5.10 (3.80-5.40) m/uL Hgb 15.3 (11.4-16.0) gm/dL Hct 45.8 (34.0-46.0) % MCV 89.8 (80.0-100.0) fL MCH 30.1 (25.0-35.0) pg MCHC 33.5 (31.0-37.0) g/dL RDW 12.4 (11.5-15.5) % Plt Count 171 (150-450) k/uL Neutrophils % 60 % Lymphocytes % 29 % Monocytes % 5 % Eosinophils % 2 % Basophils % 2 % Neutrophils # 4.4 (1.3-7.7) k/uL Lymphocytes # 2.1 (1.0-4.8) k/uL Monocytes # 0.4 (0-1.0) k/uL Eosinophils # 0.2 (0-0.7) k/uL Basophils # 0.1 (0-0.2) k/uL Sodium 137 (137-145) mmol/L Potassium 3.5 (3.5-5.1) mmol/L Chloride 106 (98-107) mmol/L Carbon Dioxide 23 (22-30) mmol/L Anion Gap 8 mmol/L BUN 12 (7-17) mg/dL Creatinine 0.62 (0.52-1.04) mg/dL Est GFR (CKD-EPI)AfAm >90 (>60 ml/min/1.73 sqM) Est GFR (CKD-EPI)NonAf >90 (>60 ml/min/1.73 sqM) Glucose 94 (74-99) mg/dL Calcium 8.8 (8.4-10.2) mg/dL Magnesium 2.0 (1.6-2.3) mg/dL Total Bilirubin 0.7 (0.2-1.3) mg/dL AST 25 (14-36) U/L ALT 19 (4-34) U/L Alkaline Phosphatase 74 (38-126) U/L Total Protein 7.1 (6.3-8.2) g/dL Albumin 4.2 (3.5-5.0) g/dL Amylase 67 (30-110) U/L Lipase 37 (23-300) U/L Disposition Clinical Impression: Abdominal pain, Left ovarian cyst, Elevated blood pressure reading Disposition: HOME SELF-CARE Condition: Good Instructions (If sedation given, give patient instructions): Diverticulosis (ED), Diverticulitis Diet (ED), Abdominal Pain (ED) Additional Instructions: Please use medication as discussed. Please follow-up with family doctor in the next 2 days for blood pressure and pain, follow-up with GI in the next week. Follow-up with your OBGYN for ovarian cyst. Recommend colonoscopy. Please return to emergency room if the symptoms increase or worsen or for any other concerns-increasing pain, fevers, persistent diarrhea. Prescriptions: Amoxic-Pot Clav 875-125Mg [Augmentin 875-125] 1 tab PO Q12HR 7 Days #14 tablet Is patient prescribed a controlled substance at d/c from ED?: No Referrals: Jason Wheeler MD [Primary Care Provider] - 1-2 days Carie Hernandez MD [STAFF PHYSICIAN] - 1-2 days Time of Disposition: 14:50
[2019-11-24 15:49] LABS: Appearance,Urine Clear (Clear); Bilirubin,Urine Negative (Negative); Blood,Urine Negative (Negative); Color,Urine Yellow; Glucose,Urine (UA) Negative (Negative); Ketones,Urine 1+ (Negative); Protein,Urine Negative (Negative); Urobilinogen,Urine 0.2 mg/dL (<2.0)
[2019-11-24 15:50] LABS: Leukocyte Esterase,Urine Negative (Negative); Nitrite,Urine Negative (Negative)
== END 2019-11-24 15:13 | disposition home or self-care (01) ==
LOC: EC 12:42
DX: N83.202 Unspecified ovarian cyst, left side (principal); R03.0 Elevated blood-pressure reading, without diagnosis of hypertension; K57.30 Diverticulosis of large intestine without perforation or abscess without bleeding; R19.7 Diarrhea, unspecified; R11.2 Nausea with vomiting, unspecified; R68.83 Chills (without fever); F17.200 Nicotine dependence, unspecified, uncomplicated; Z88.6 Allergy status to analgesic agent; Z91.013 Allergy to seafood; Z87.19 Personal history of other diseases of the digestive system; Z90.49 Acquired absence of other specified parts of digestive tract; Z98.84 Bariatric surgery status; Z98.890 Other specified postprocedural states; Z83.79 Family history of other diseases of the digestive system
CPT/HCPCS: 36415; 80053; 82150; 83690; 83735; 85025; 81003; 74177; 99284; 96374; 96361 ×2; J2405; Q9967

== ENCOUNTER → 2019-11-27 | Outpatient (CLI) | payer BC, OTHER ==
--- NOTE | 2019-11-28 09:03 | XR ---
KUB HISTORY: K59.09 Frontal KUB submitted on [address] abdomen pelvis 11/24/2019 There are surgical clips in the right upper quadrant. There is a spinal curvature the lumbar spine. P ostop changes are noted at the stomach. No pneumoperitoneum or bowel obstruction. No pathologic calci fication is evident. Phleboliths are present within the pelvis. Vascular calcifications also noted in cidentally. IMPRESSION: No significant abnormalities evident.
== END | disposition home or self-care (01) ==
LOC: RAD 17:23
PROVIDERS: ATTEND Family Medicine
DX: K59.09 Other constipation (principal)
CPT/HCPCS: 74018

== ENCOUNTER → 2020-03-05 | Outpatient (CLI) | payer BC, OTHER ==
--- NOTE | 2020-03-09 08:20 | MM ---
Reason for exam: screening (asymptomatic). Last mammogram was performed 1 year and 5 months ago. History: Patient had first child at age 33. Family history of breast cancer in 2 maternal aunts. Physical Findings: A clinical breast exam by your physician is recommended on an annual basis and results should be correlated with mammographic findings. MG Screening Mammo w CAD Bilateral CC and MLO view(s) were taken. Prior study comparison: September 23, 2018, bilateral MG screening mammo w CAD. June 16, 2017, bilateral MG screening mammo w CAD. There are scattered fibroglandular densities. There is chronic nodularity in the left breast. There is no discrete abnormality. ASSESSMENT: Negative, BI-RAD 1 RECOMMENDATION: Routine screening mammogram of both breasts in 1 year.
== END | disposition home or self-care (01) ==
LOC: RADMAMWWP 13:23
PROVIDERS: ATTEND Obstetrics & Gynecology
DX: Z12.31 Encounter for screening mammogram for malignant neoplasm of breast (principal); Z80.3 Family history of malignant neoplasm of breast
CPT/HCPCS: 77067

== ENCOUNTER 2021-07-03 16:03 | Emergency (ER) | payer BC, OTHER ==
[2021-07-03 16:27] VITALS: BP 162/85; PULSE 62; RESP 18; TEMP 98.4
--- NOTE | 2021-07-03 19:24 | XR ---
EXAMINATION TYPE: XR elbow complete LT DATE OF EXAM: 07/03/2021 COMPARISON: NONE HISTORY: Elbow pain TECHNIQUE: 3 views FINDINGS: There is no sign of fracture nor dislocation. Joint spaces are normal. There are no patholo gic calcifications. There is no sign of elbow joint effusion. IMPRESSION: Negative left elbow exam.
--- NOTE | 2021-07-03 19:56 | ED ---
Upper Extremity HPI - General Chief Complaint: Extremity Injury, Upper Stated Complaint: left arm pain Time Seen by Provider: 07/03/21 18:32 Source: patient Mode of arrival: ambulatory Limitations: no limitations - History of Present Illness Initial Comments: Patient complains of injury to the left elbow. She states it has been painful since then. She has no chest or belly or back pain. She has no nausea or vomiting. She has no diaphoresis. She has no tightness or pressure in the chest either. She has no light headedness. She has no neck pain or stiffness. She has no weakness in the hands. She has no paresthesias. She has no swelling. She has no bruising. She has no discoloration. The pain does not radiate anywhere. The pain is worse with movement. - Related Data Home Medications Medication Instructions Recorded Confirmed Ascorbic Acid [Vitamin C] 500 mg PO DAILY 02/29/16 08/13/17 Multivitamin/Iron/Folic Acid 1 tab PO DAILY 02/29/16 08/13/17 [Centrum Complete Multivit Tab] diphenhydrAMINE [Benadryl] 25 mg PO DAILY PRN 02/29/16 08/13/17 Cholecalciferol (Vitamin D3) 50,000 unit PO DAILY 02/05/17 08/13/17 [Vitamin D3] Previous Rx's Medication Instructions Recorded Omeprazole 40 mg PO DAILY #60 capsule. 06/04/17 Amoxic-Pot Clav 875-125Mg 1 tab PO Q12HR 7 Days #14 tablet 11/24/19 [Augmentin 875-125] Allergies Allergy/AdvReac Type Severity Reaction Status Date / Time ibuprofen [From Motrin] Allergy Rash/Hives Verified 07/03/21 16:27 shellfish derived [Shrimp] Allergy Unknown Verified 07/03/21 16:27 Review of Systems ROS Statement: Those systems with pertinent positive or pertinent negative responses have been documented in the HPI. ROS Other: All systems not noted in ROS Statement are negative. Past Medical History Past Medical History: GERD/Reflux Additional Past Medical History / Comment(s): HIATAL HERNIA, VARICOSE VEINS. History of Any Multi-Drug Resistant Organisms: None Reported Past Surgical History: Section, Cholecystectomy, Uterine Ablation Additional Past Surgical History / Comment(s): 08/08/16 Laparoscopic sleeve gastrectomy with hiatal hernia repair. Other surgical HX: PILONIDAL CYST REMOVED,EGD, OVARIAN CYST. Past Anesthesia/Blood Transfusion Reactions: Postoperative Nausea & Vomiting (PONV) Past Psychological History: No Psychological Hx Reported Smoking Status: Current every day smoker Past Alcohol Use History: None Reported Past Drug Use History: None Reported - Past Family History Father Family Medical History: No Reported History Sister(s) Additional Family Medical History / Comment(s): Crohn's and Colitis Mother Family Medical History: Cancer Additional Family Medical History / Comment(s): BLADDER CA General Exam Limitations: no limitations General appearance: alert, in no apparent distress Head exam: Present: atraumatic, normocephalic, normal inspection Eye exam: Present: normal appearance, PERRL, EOMI. Absent: scleral icterus, conjunctival injection, periorbital swelling ENT exam: Present: normal exam, mucous membranes moist Neck exam: Present: normal inspection. Absent: tenderness, meningismus, lymphadenopathy Respiratory exam: Present: normal lung sounds bilaterally. Absent: respiratory distress, wheezes, rales, rhonchi, stridor Cardiovascular Exam: Present: regular rate, normal rhythm, normal heart sounds. Absent: systolic murmur, diastolic murmur, rubs, gallop, clicks GI/Abdominal exam: Present: soft, normal bowel sounds. Absent: distended, tenderness, guarding, rebound, rigid Extremities exam: Present: normal inspection, full ROM, normal capillary refill. Absent: tenderness, pedal edema, joint swelling, calf tenderness Back exam: Present: normal inspection Neurological exam: Present: alert, oriented X3, CN II-XII intact Psychiatric exam: Present: normal affect, normal mood Skin exam: Present: warm, dry, intact, normal color. Absent: rash Course Vital Signs 07/03/21 16:22 Temperature 98.4 F Pulse Rate 62 Respiratory 18 Rate Blood Pressure 162/85 O2 Sat by Pulse 98 Oximetry Medical Decision Making - Medical Decision Making Imaging is all negative. The patient is neurovascularly intact. There is no evidence of vascular ischemia or DVT. She has no evidence of central process such as aortic dissection or ACS. She is feeling better. She is stable for discharge. I instructed her to return to the emergency department if she develops any new proms or complaints or if her symptoms worsen or for anything at all. Disposition Clinical Impression: Contusion Disposition: HOME SELF-CARE Condition: Good Instructions (If sedation given, give patient instructions): Elbow Sprain (ED) Is patient prescribed a controlled substance at d/c from ED?: No Referrals: Jason Wheeler MD [Primary Care Provider] - 1-2 days Dewayne Rowland MD [Medical Doctor] - 1-2 days
--- NOTE | 2021-07-03 20:15 | XR ---
EXAMINATION TYPE: XR chest 2V DATE OF EXAM: 07/03/2021 COMPARISON: NONE HISTORY: Left arm pain TECHNIQUE: 2 views FINDINGS: Heart and mediastinum are normal. Lungs are clear. Diaphragm is normal. Bony thorax is inta ct. There is slight thoracic dextroscoliosis. IMPRESSION: Normal chest.
== END 2021-07-03 20:43 | disposition home or self-care (01) ==
LOC: EC 16:03
DX: S50.02XA Contusion of left elbow, initial encounter (principal); K21.9 Gastro-esophageal reflux disease without esophagitis; F17.200 Nicotine dependence, unspecified, uncomplicated; Z88.6 Allergy status to analgesic agent; Z90.49 Acquired absence of other specified parts of digestive tract; W22.8XXA Striking against or struck by other objects, initial encounter
CPT/HCPCS: 71046; 99283

== ENCOUNTER → 2023-01-19 | Outpatient (CLI) | payer BC, OTHER ==
--- NOTE | 2023-01-22 08:10 | MM ---
Reason for Exam: Screening (asymptomatic). Last mammogram was performed 2 year(s) and 11 month(s) ago. Patient History: Menarche at age 16. First Full-Term at age 33. Late child-bearing (after 30). Postmenopausal. Maternal aunt had breast cancer. Maternal aunt had breast cancer. Risk Values: Annie 5 year model risk: 1.5%. NCI Lifetime model risk: 10.2%. Prior Study Comparison: 06/16/2017 Bilateral Screening Mammogram, [facility]. 09/23/2018 Bilateral Screening Mammogram, [facility]. 03/05/2020 Bilateral Screening Mammogram, [facility]. Tissue Density: The breast tissue is heterogeneously dense. This may lower the sensitivity of mammography. Findings: Analyzed By CAD. There is no suspicious group of microcalcifications or new suspicious mass in either breast. Overall Assessment: Negative, BI-RAD 1 Management: Screening Mammogram of both breasts in 1 year. A clinical breast exam by your physician is recommended on an annual basis and results should be correlated with mammographic findings. Electronically signed and approved by: Albaro Mendieta M.D. Radiologis
== END | disposition home or self-care (01) ==
LOC: RADMAMWWP 13:37
PROVIDERS: ATTEND Family Medicine
DX: Z12.31 Encounter for screening mammogram for malignant neoplasm of breast (principal); Z78.0 Asymptomatic menopausal state; Z80.3 Family history of malignant neoplasm of breast
CPT/HCPCS: 77063; 77067

== ENCOUNTER → 2024-02-22 | Outpatient (CLI) | payer BC, OTHER ==
--- NOTE | 2024-02-26 12:30 | MM ---
Reason for Exam: Screening (asymptomatic). Last mammogram was performed 1 year(s) and 1 month(s) ago. Patient History: Menarche at age 16. First Full-Term at age 36. Late child-bearing (after 30). Postmenopausal. Maternal aunt had breast cancer. Maternal aunt had breast cancer. Risk Values: Annie 5 year model risk: 1.6%. NCI Lifetime model risk: 10.0%. Prior Study Comparison: 04/27/2016 Bilateral Screening Mammogram, [facility]. 06/16/2017 Bilateral Screening Mammogram, [facility]. 09/23/2018 Bilateral Screening Mammogram, [facility]. 03/05/2020 Bilateral Screening Mammogram, [facility]. 01/19/2023 Bilateral MG 3D screening mammo w/cad, [facility]. Tissue Density: There are scattered areas of fibroglandular density. Findings: Analyzed By CAD. Right breast: There is no suspicious group of microcalcifications or new suspicious mass. Left breast: There is no suspicious group of microcalcifications or new suspicious mass. Overall Assessment: Negative, BI-RAD 1 Management: Screening Mammogram of both breasts in [address] [facility] will attempt to contact patient to return for supplemental views and ultrasound if indicated. Patient should continue monthly self-breast exams. A clinical breast exam by your physician is recommended on an annual basis. This exam should not preclude additional follow-up of suspicious palpable abnormalities. Note on Annie scores and lifetime risk: 1. A Annie score greater than 3% is considered moderate risk. If this is the case, consider specialist referral to assess eligibility for a risk reducing agent. 2. If overall lifetime risk for the development of breast cancer is 20% or higher, the patient may qualify for future screening with alternating mammogram and breast MRI. Electronically signed and approved by: Carlos Manuel Raines DO
== END | disposition home or self-care (01) ==
LOC: RADMAMWWP 12:33
PROVIDERS: ATTEND Family Medicine
DX: Z12.31 Encounter for screening mammogram for malignant neoplasm of breast (principal); Z78.0 Asymptomatic menopausal state; Z80.3 Family history of malignant neoplasm of breast
CPT/HCPCS: 77063; 77067

== ENCOUNTER 2025-02-01 14:09 | Emergency (ER) | payer BC, OTHER ==
--- NOTE | 2025-02-01 14:34 | ED ---
ENT HPI - General Chief complaint: ENT Stated complaint: Ear and throat pain Time Seen by Provider: 02/01/25 14:33 Source: patient, RN notes reviewed Mode of arrival: ambulatory Limitations: no limitations - History of Present Illness Initial comments: 59-year-old female presented the ER for evaluation of sore throat and bilateral ear discomfort. Patient reports for approximately 2 weeks she has been having throat discomfort stating it feels like there is something in her throat. She also reports over the past 2 weeks progressively worsening pressure to bilateral ears. She does report left is worse than the right and feels like it is about to "explode". She describes waking up in the morning she feels like she has to "cough up phlegm". Patient was seen by PCP on 01-26-2025 and had viral swabs along with strep swabs completed which were negative. Patient has tried [id number] eardrops without relief of discomfort. She has also tried Sudafed and Mucinex. She denies any cough, congestion, fevers, chills, difficulty breathing, wheezing or chest discomfort. Patient is a smoker. Patient has no other complaints at this time. - Related Data Home Medications Medication Instructions Recorded Confirmed Ascorbic Acid [Vitamin C] 500 mg PO DAILY 02/29/16 08/13/17 Multivitamin/Iron/Folic Acid 1 tab PO DAILY 02/29/16 08/13/17 [Centrum Complete Multivit Tab] diphenhydrAMINE [Benadryl] 25 mg PO DAILY PRN 02/29/16 08/13/17 Cholecalciferol (Vitamin D3) 50,000 unit PO DAILY 02/05/17 08/13/17 [Vitamin D3] Previous Rx's Medication Instructions Recorded Omeprazole 40 mg PO DAILY #60 capsule. 06/04/17 Amoxic-Pot Clav 875-125Mg 1 tab PO Q12HR 7 Days #14 tablet 11/24/19 [Augmentin 875-125] Amoxic-Pot Clav 875-125Mg 1 tab PO Q12HR 7 Days #14 tab 02/01/25 [Augmentin 875-125] methylPREDNISolone [Medrol Dose 0 mg PO DIRECTED #1 packet 02/01/25 Pack] lisinopriL [Zestril] 5 mg PO DAILY 14 Days #14 tab 02/02/25 Allergies Allergy/AdvReac Type Severity Reaction Status Date / Time ibuprofen [From Motrin] Allergy Rash/Hives Verified 02/02/25 13:45 shellfish derived [Shrimp] Allergy Unknown Verified 02/02/25 13:45 Sulfa (Sulfonamide AdvReac Unknown Verified 02/02/25 13:45 Antibiotics) Review of Systems ROS Statement: Those systems with pertinent positive or pertinent negative responses have been documented in the HPI. ROS Other: All systems not noted in ROS Statement are negative. Past Medical History Past Medical History: GERD/Reflux Additional Past Medical History / Comment(s): HIATAL HERNIA, VARICOSE VEINS. History of Any Multi-Drug Resistant Organisms: None Reported Past Surgical History: Section, Cholecystectomy, Uterine Ablation Additional Past Surgical History / Comment(s): 08/08/16 Laparoscopic sleeve gastrectomy with hiatal hernia repair. Other surgical HX: PILONIDAL CYST REMOVED,EGD, OVARIAN CYST. Past Anesthesia/Blood Transfusion Reactions: Postoperative Nausea & Vomiting (PONV) Past Psychological History: No Psychological Hx Reported Smoking Status: Current every day smoker Past Alcohol Use History: None Reported Past Drug Use History: None Reported - Past Family History Father Family Medical History: No Reported History Sister(s) Additional Family Medical History / Comment(s): Crohn's and Colitis Mother Family Medical History: Cancer Additional Family Medical History / Comment(s): BLADDER CA General Exam Limitations: no limitations General appearance: alert, in no apparent distress ENT exam: Present: normal oropharynx (Erythema to oropharynx. No tonsillar edema, exudates or uvular deviation.), mucous membranes moist, TM's normal bilaterally, other (No mastoid tenderness bilaterally. Right external auditory canal is erythematous no drainage present. Left external auditory canal unremarkable.) Neck exam: Present: normal inspection. Absent: tenderness, meningismus, lymphadenopathy Respiratory exam: Present: normal lung sounds bilaterally. Absent: respiratory distress, wheezes, rales, rhonchi, stridor Cardiovascular Exam: Present: regular rate, normal rhythm, normal heart sounds. Absent: systolic murmur, diastolic murmur, rubs, gallop, clicks Neurological exam: Present: alert, oriented X3, CN II-XII intact Skin exam: Present: warm, dry, intact, normal color. Absent: rash Course Vital Signs 04/27/25 04/27/25 04/27/25 14:10 15:41 16:31 Temperature 99 F 98.4 F Pulse Rate 76 54 L 66 Respiratory 18 20 20 Rate Blood Pressure 181/105 180/128 180/118 O2 Sat by Pulse 98 99 99 Oximetry Medical Decision Making - Medical Decision Making Was pt. sent in by a medical professional or institution ([facility] [place], PROPOSAL MANAGER, urgent care, hospital, or skilled nursing...) When possible be specific @ -No Did you speak to anyone other than the patient for history (EMS, parent, family, police, friend...)? What history was obtained from this source @ -No Did you review nursing and triage notes (agree or disagree)? Why? @ -I reviewed and agree with nursing and triage notes Were old charts reviewed (outside hosp., previous admission, EMS record, old EKG, old radiological studies, urgent care reports/EKG's, skilled nursing records)? Report findings @ -No old charts were reviewed Differential Diagnosis (chest pain, altered mental status, abdominal pain women, abdominal pain men, vaginal bleeding, weakness, fever, dyspnea, syncope, headache, dizziness, GI bleed, back pain, seizure, CVA, palpatations, mental health, musculoskeletal)? @ -COVID, RSV, influenza, viral sinusitis, pneumonia, strep pharyngitis, this list is not meant to be all-inclusive EKG interpreted by me (3pts min.). @ -None done X-rays interpreted by me (1pt min.). @ -None done CT interpreted by me (1pt min.). @ -None done U/S interpreted by me (1pt. min.). @ -None done What testing was considered but not performed or refused? (CT, X-rays, U/S, labs)? Why? @ -None What meds were considered but not given or refused? Why? @ -None Did you discuss the management of the patient with other professionals (professionals i.e. [facility] [place], PROPOSAL MANAGER, lab, RT, psych nurse, social security benefits interviewer, finish filer, teacher, [place] police officer, case sealer)? Give summary @ -No Was smoking cessation discussed for >3mins.? @ -I discussed smoking cessation for greater than 3 minutes. The risk of smoking were discussed with the patient including but not limited to risks of cancer, stroke, coronary artery disease and COPD. Also discussed with patient were multiple methods of quitting smoking. Lastly we discussed the financial cost of smoking. Was critical care preformed (if so, how long)? @ -No Were there social determinants of health that impacted care today? How? (Homelessness, low income, unemployed, alcoholism, drug addiction, transportation, low edu. Level, literacy, decrease access to med. care, correction, rehab)? @ -No Was there de-escalation of care discussed even if they declined (Discuss DNR or withdrawal of care, Hospice)? DNR status @ -No What co-morbidities impacted this encounter? (DM, HTN, Smoking, COPD, CAD, Cancer, CVA, ARF, Chemo, Hep., AIDS, mental health diagnosis, sleep apnea, morbid obesity)? @ -None Was patient admitted / discharged? Hospital course, mention meds given and route, prescriptions, significant lab abnormalities, going to OR and other pertinent info. @ -Discharge. 59-year-old female presenting to the ER for evaluation of Sore throat and bilateral ear discomfort x 10 days. Patient hypertensive 181/105 vitals otherwise within acceptable limits. Patient in no signs acute distress nontoxic-appearing. Patient denying any chest pain, shortness of breath, headache, dizziness or lightheadedness. Viral swabs and strep will be obtained, patient is agreeable. Influenza, RSV, COVID and strep negative. Given patient's duration of symptoms, >10days, patient prescribed Augmentin. She will also be discharged with a Medrol Dosepak. Patient remained hypertensive and not complaining of any concerning symptoms. I advised her to follow-up closely with PCP for further evaluation of blood pressure. I recommended she get a blood pressure cuff and keep a blood pressure log at home as well. Blood pressure may be elevated to recent Sudafed use as well. Upon reevaluation, patient resting comfortably in exam room no signs of acute distress. Results discussed with patient, all questions answered. Patient agreeable for discharge. Return parameters discussed. I advised close follow-up with PCP in the next 1 to 2 days. Patient verbally expressed understanding and agreement with care plan. Case discussed with ED attending, Dr. Aviles. Undiagnosed new problem with uncertain prognosis? @ -No Drug Therapy requiring intensive monitoring for toxicity (Heparin, Nitro, Insulin, Cardizem)? @ -No Were any procedures done? @ -No Diagnosis/symptom? @ -Bacterial pharyngitis Acute, or Chronic, or Acute on Chronic? @ -Acute Uncomplicated (without systemic symptoms) or Complicated (systemic symptoms)? @ -Uncomplicated Side effects of treatment? @ -No Exacerbation, Progression, or Severe Exacerbation? @ -No Poses a threat to life or bodily function? How? (Chest pain, [place], [place], pneumonia, PE, COPD, DKA, ARF, appy, cholecystitis, CVA, Diverticulitis, Homicidal, Suicidal, threat to staff... and all critical care pts) @ -No - Lab Data Lab Results 02/01/25 02/01/25 Range/Units 14:44 15:53 Influenza Type A (PCR) Not Detected (Not Detectd) Influenza Type B (PCR) Not Detected (Not Detectd) RSV (PCR) Not Detected (Not Detectd) SARS-CoV-2 (PCR) Not Detected (Not Detectd) Group A Strep (PCR) NOT DETECTED (Not Detectd) Disposition Clinical Impression: Pharyngitis Disposition: HOME SELF-CARE Condition: Stable Instructions (If sedation given, give patient instructions): Hypertension (ED) Additional Instructions: Follow-up with PCP for further evaluation of blood pressure. I recommend you purchase a blood pressure cuff and log blood pressures twice daily. Take antibiotics as prescribed. Return to the ER for any new or worsening symptoms. Prescriptions: Amoxic-Pot Clav 875-125Mg [Augmentin 875-125] 1 tab PO Q12HR 7 Days #14 tab methylPREDNISolone [Medrol Dose Pack] 0 mg PO DIRECTED #1 packet Is patient prescribed a controlled substance at d/c from ED?: No Referrals: Brody Bo Jr, [Primary Care Provider] - 1-2 days Time of Disposition: 15:54
[2025-02-01 15:31] LABS: Influenza A Not Detected (Not Detectd); Influenza B Not Detected (Not Detectd); RSV Not Detected (Not Detectd)
[2025-02-01 15:42] VITALS: RESP 20
[2025-02-01] MEDS: hydrALAZINE HCL 25 MG TAB PO STA (15:56)
[2025-02-01] MEDS: hydrALAZINE HCL 20 MG/ML 1 ML VIAL IVP STA (15:58)
[2025-02-01 16:34] VITALS: BP 180/118; PULSE 66; TEMP 98.4
== END 2025-02-01 16:31 | disposition home or self-care (01) ==
LOC: EC 14:09
DX: J02.8 Acute pharyngitis due to other specified organisms (principal); F17.200 Nicotine dependence, unspecified, uncomplicated; Z88.6 Allergy status to analgesic agent; Z88.2 Allergy status to sulfonamides; Z91.013 Allergy to seafood
CPT/HCPCS: 87636; 87651; 99283; 99406

== ENCOUNTER 2025-02-02 13:33 | Emergency (ER) | payer BC ==
--- NOTE | 2025-02-02 14:03 | ED ---
General Adult HPI - General Chief complaint: Recheck/Abnormal Lab/Rx Stated complaint: ABN Labs Time Seen by Provider: 02/02/25 13:36 Source: patient Mode of arrival: ambulatory Limitations: no limitations - History of Present Illness Initial comments: Dictation was produced using [employer] dictation software. please excuse any grammatical, word or spelling errors. Chief Complaint: 59-year-old female headache and hypertension History of Present Illness: Patient 59-year-old female presents emergency department with headache and hypertension. She checked her blood pressure today was found to be high. She had her blood pressure checked by a family member who is a nurse started was high. Called primary care doctor told her to come to the ER. Patient has a headache. States that it is an 8 out of 10 holoacranial and throbbing. She has no history of headaches. Patient does not have a history of hypertension. The ROS documented in this emergency department record has been reviewed and confirmed by me. Those systems with pertinent positive or negative responses have been documented in the HPI. All other systems are other negative and/or noncontributory. - Related Data Home Medications Medication Instructions Recorded Confirmed Ascorbic Acid [Vitamin C] 500 mg PO DAILY 02/29/16 08/13/17 Multivitamin/Iron/Folic Acid 1 tab PO DAILY 02/29/16 08/13/17 [Centrum Complete Multivit Tab] diphenhydrAMINE [Benadryl] 25 mg PO DAILY PRN 02/29/16 08/13/17 Cholecalciferol (Vitamin D3) 50,000 unit PO DAILY 02/05/17 08/13/17 [Vitamin D3] Previous Rx's Medication Instructions Recorded Omeprazole 40 mg PO DAILY #60 capsule. 06/04/17 Amoxic-Pot Clav 875-125Mg 1 tab PO Q12HR 7 Days #14 tablet 11/24/19 [Augmentin 875-125] Amoxic-Pot Clav 875-125Mg 1 tab PO Q12HR 7 Days #14 tab 02/01/25 [Augmentin 875-125] methylPREDNISolone [Medrol Dose 0 mg PO DIRECTED #1 packet 02/01/25 Pack] lisinopriL [Zestril] 5 mg PO DAILY 14 Days #14 tab 02/02/25 Allergies Allergy/AdvReac Type Severity Reaction Status Date / Time ibuprofen [From Motrin] Allergy Rash/Hives Verified 02/02/25 13:45 shellfish derived [Shrimp] Allergy Unknown Verified 02/02/25 13:45 Sulfa (Sulfonamide AdvReac Unknown Verified 02/02/25 13:45 Antibiotics) Review of Systems ROS Statement: Those systems with pertinent positive or pertinent negative responses have been documented in the HPI. ROS Other: All systems not noted in ROS Statement are negative. Past Medical History Past Medical History: GERD/Reflux Additional Past Medical History / Comment(s): HIATAL HERNIA, VARICOSE VEINS. History of Any Multi-Drug Resistant Organisms: None Reported Past Surgical History: Section, Cholecystectomy, Uterine Ablation Additional Past Surgical History / Comment(s): 08/08/16 Laparoscopic sleeve gastrectomy with hiatal hernia repair. Other surgical HX: PILONIDAL CYST REMOVED,EGD, OVARIAN CYST. Past Anesthesia/Blood Transfusion Reactions: Postoperative Nausea & Vomiting (P ONV) Past Psychological History: No Psychological Hx Reported Smoking Status: Current every day smoker Past Alcohol Use History: None Reported Past Drug Use History: None Reported - Past Family History Father Family Medical History: No Reported History Sister(s) Additional Family Medical History / Comment(s): Crohn's and Colitis Mother Family Medical History: Cancer Additional Family Medical History / Comment(s): BLADDER CA General Exam - General Exam Comments Initial Comments: PHYSICAL EXAM: General Impression: Alert and oriented x3, not in acute distress HEENT: Normocephalic atraumatic, extra-ocular movements intact, pupils equal and reactive to light bilaterally, mucous membranes moist. Cardiovascular: Heart regular rate and rhythm Chest: Able to complete full sentences, no retractions, no tachypnea Abdomen: abdomen soft, non-tender, non-distended, no organomegaly Musculoskeletal: Pulses present and equal in all extremities, no peripheral edema Motor: no focal deficits noted Neurological: CN II-XII grossly intact, no focal motor or sensory deficits noted Skin: Intact with no visualized rashes Psych: Normal affect and mood Limitations: no limitations Course Vital Signs 02/02/25 13:40 Temperature 97.9 F Pulse Rate 74 Respiratory 18 Rate Blood Pressure 188/99 O2 Sat by Pulse 99 Oximetry EKG Findings - EKG Comments: EKG Findings:: My EKG interpretation: Ventricular rate 66, sinus rhythm, RI interval 139, QRS 93, QTc 4 5. No Overall, this EKG is unremarkable Medical Decision Making - Medical Decision Making Was pt. sent in by a medical professional or institution (, [facility], READING SPECIALIST, urgent care, hospital, or [facility]...) When possible be specific @ -[No] Did you speak to anyone other than the patient for history (EMS, parent, family, police, friend...)? What history was obtained from this source @ -[No] Did you review nursing and triage notes (agree or disagree)? Why? @ -[I reviewed and agree with nursing and triage notes] Were old charts reviewed (outside hosp., previous admission, EMS record, old EKG, old radiological studies, urgent care reports/EKG's, [facility] records)? Report findings @ -[No old charts were reviewed] Differential Diagnosis (chest pain, altered mental status, abdominal pain women, abdominal pain men, vaginal bleeding, musculoskeletal, weakness, fever, dyspnea, syncope, headache, dizziness, GI bleed, back pain, seizure, CVA, palpatations, mental health)? @ -Differential Headache: Migraine, tension, cluster, carbon monoxide, central venous thrombosis, pension karma temporal arteritis, acute closure glaucoma, intercranial hemorrhage, mastoiditis, sinusitis, head injury, this is not meant to be an all-inclusive list. EKG interpreted by me (3pts min.). @ -See above X-rays interpreted by me (1pt min.). @ -[None done] CT interpreted by me (1pt min.). @ -CT brain shows no acute processes. U/S interpreted by me (1pt. min.). @ -[None done] What testing was considered but not performed or refused? (CT, X-rays, U/S, labs)? Why? @ -[None] What meds were considered but not given or refused? Why? @ -[None] Was smoking cessation discussed for >3mins.? @ -[No] Were there social determinants of health that impacted care today? How? (Homelessness, low income, unemployed, alcoholism, drug addiction, transportation, low edu. Level, literacy, decrease access to med. care, usp, rehab)? @ -[No] Was there de-escalation of care discussed even if they declined (Discuss DNR or withdrawal of care, Hospice)? DNR status @ -[No] What co-morbidities impacted this encounter? (DM, HTN, Smoking, COPD, CAD, Cancer, CVA, ARF, Chemo, Hep., AIDS, mental health diagnosis, sleep apnea, morbid obesity)? @ -[None] Was patient admitted / discharged? Hospital course, mention meds given and route, prescriptions, significant lab abnormalities, going to OR and other pertinent info. @ -59-year-old female presents emergency department hypertension she also complains of a headache. CT brain is negative. Vital signs stable. No neurodeficits. Blood pressure on arrival is 188/99. Patient denies any history of hypertension. Labs are unremarkable. Patient given headache cocktail with improvement of symptoms. Case discussed with Dr. Bo recommends patient be started on lisinopril and follow-up in the office tomorrow Did you discuss the management of the patient with other professionals (professionals i.e. , PA, READING SPECIALIST, lab, RT, psych nurse, social media content manager, plant packer, teacher, annual giving officer, nurse case manager)? Give summary @ -See above Was critical care preformed (if so, how long)? @ -[No] Undiagnosed new problem with uncertain prognosis? @ -[No] Drug Therapy requiring intensive monitoring for toxicity (Heparin, Nitro, Insulin, Cardizem)? @ -[No] Were any procedures done? @ -[No] Diagnosis/symptom? Acute, or Chronic, or Acute on Chronic? Uncomplicated (without systemic symptoms) or Complicated (systemic symptoms)? @ -Migraine headache, hypertension Side effects of treatment? @ -[No] Exacerbation, Progression, or Severe Exacerbation? @ -[No] Poses a threat to life or bodily function? How? (Chest pain, [place], [place], pneumonia, PE, COPD, DKA, ARF, appy, cholecystitis, CVA, Diverticulitis, Homicidal, Suicidal, threat to staff... and all critical care pts) @ -[No] - Lab Data Result diagrams: 02/02/25 14:16 02/02/25 15:04 Lab Results 02/02/25 02/02/25 Range/Units 14:16 15:04 WBC 12.98 H (4.50-10.00) 10*3/uL RBC 5.62 H (4.10-5.20) 10*6/uL Hgb 16.7 H (12.0-15.0) g/dL Hct 48.7 H (37.2-46.3) % MCV 86.7 (80.0-97.0) fL MCH 29.7 (27.0-32.0) pg MCHC 34.3 (32.0-37.0) g/dL Plt Count 227 (140-440) 10*3/uL MPV 10.0 (9.5-12.2) fL Immature Gran % (Auto) 0.2 % Neutrophils % 65.8 % Lymphocytes % 26.4 % Monocytes % 6.9 % Eosinophils % 0.4 % Basophils % 0.3 % Immature Gran # 0.03 (0.00-0.04) 10*3/uL Neutrophils # 8.53 H (1.80-7.70) 10*3/uL Lymphocytes # 3.43 (0.90-5.00) 10*3/uL Monocytes # 0.90 (0.20-1.00) 10*3/uL Eosinophils # 0.05 (0.04-0.35) 10*3/uL Basophils # 0.04 (0.00-0.10) 10*3/uL Sodium 143 (137-145) mmol/L Potassium 3.4 L (3.5-5.1) mmol/L Chloride 109 H (98-107) mmol/L Carbon Dioxide 25 (22-30) mmol/L Anion Gap 9 mmol/L BUN 11 (7-17) mg/dL Creatinine 0.66 (0.52-1.04) mg/dL Est GFR (CKD-EPI)AfAm >90 (>60 ml/min/1.73 sqM) Est GFR (CKD-EPI)NonAf >90 (>60 ml/min/1.73 sqM) Glucose 103 H (74-99) mg/dL Calcium 10.1 (8.4-10.2) mg/dL Total Bilirubin 0.7 (0.2-1.3) mg/dL AST 20 (14-36) U/L ALT 19 (4-34) U/L Alkaline Phosphatase 72 (38-126) U/L Total Protein 7.1 (6.3-8.2) g/dL Albumin 4.4 (3.5-5.0) g/dL Disposition Clinical Impression: Hypertension Disposition: HOME SELF-CARE Condition: Fair Prescriptions: lisinopriL [Zestril] 5 mg PO DAILY 14 Days #14 tab Is patient prescribed a controlled substance at d/c from ED?: No Referrals: Brody Bo Jr, DO [Primary Care Provider] - 1-2 days Time of Disposition: 15:32
[2025-02-02 14:24] LABS: Basophils # (A) 0.04 10*3/uL (0.00-0.10); Basophils % (A) 0.3 %; Eosinophils # (A) 0.05 10*3/uL (0.04-0.35); Eosinophils % (A) 0.4 %; HCT 48.7 % (37.2-46.3); HGB 16.7 g/dL (12.0-15.0); Lymphocytes # (A) 3.43 10*3/uL (0.90-5.00); Lymphocytes % (A) 26.4 %; MCH 29.7 pg (27.0-32.0); MCHC 34.3 g/dL (32.0-37.0); MCV 86.7 fL (80.0-97.0); Monocytes % (A) 6.9 %; Neutrophils # (A) 8.53 10*3/uL (1.80-7.70); Neutrophils % (A) 65.8 %; Platelet Count 227 10*3/uL (140-440); RBC 5.62 10*6/uL (4.10-5.20); RDW 12.6 % (11.5-14.5); WBC 12.98 10*3/uL (4.50-10.00)
[2025-02-02] MEDS: SODIUM CHLORIDE 0.9% 1,000 ML IV STA (14:25)
[2025-02-02] MEDS: ONDANSETRON 4 MG/2 ML VIAL IVP STA (14:26)
[2025-02-02] MEDS: diphenhydrAMINE 50 MG/ML 1 ML VIAL IVP STA (14:26)
[2025-02-02] MEDS: ACETAMINOPHEN IV (For NPO) 1,000 MG in EMPTY BAG 1 BAG IVPB STA (14:29)
--- NOTE | 2025-02-02 14:45 | CT ---
EXAMINATION TYPE: CT brain wo con CT DLP: 1127.4 mGycm, Automated exposure control for dose reduction was used. DATE OF EXAM: 02/02/2025 2:38 PM COMPARISON: None. CLINICAL INDICATION:Female, 59 years old with history of headache, RIVERS TECHNIQUE: Brain: Multiple axial CT images of the brain were obtained without IV contrast. . Coronal and sagitta l reformats reviewed. FINDINGS: Brain: Extra-axial spaces: No abnormal extra-axial fluid collections. Ventricular system: Within normal limits Cerebral parenchyma: No acute intraparenchymal hemorrhage or mass effect. The ghotra-white junction is well differentiated. Partial empty sella morphology. Cerebellum: Unremarkable. Mass effect: No evidence of midline shift. Intracranial vasculature: Atherosclerotic calcifications of the intracranial vessels. Soft tissues: Normal. Calvarium/osseous structures: No depressed skull fracture. Paranasal sinuses and mastoid air cells: Mastoid air cells are clear. Minimal mucosal thickening of t he left posterior ethmoid sinus. Aplasia of the right frontal sinus. The remaining paranasal sinuses are clear. Visualized orbits: Orbital contents are intact. IMPRESSION: No acute intracranial process. [facility], , 02/02/2025 2:42 PM
[2025-02-02 15:30] LABS: ALT 19 U/L (4-34); AST 20 U/L (14-36); African American GFR (CKD) >90 (>60 ml/min/1.73 sqM); Albumin 4.4 g/dL (3.5-5.0); Alkaline Phosphatase 72 U/L (38-126); Anion Gap 9 mmol/L; Blood Urea Nitrogen 11 mg/dL (7-17); Calcium 10.1 mg/dL (8.4-10.2); Carbon Dioxide 25 mmol/L (22-30); Chloride 109 mmol/L (98-107); Glucose 103 mg/dL (74-99); Non-African American GFR(CKD) >90 (>60 ml/min/1.73 sqM); Potassium 3.4 mmol/L (3.5-5.1); Sodium 143 mmol/L (137-145); Total Bilirubin 0.7 mg/dL (0.2-1.3); Total Protein 7.1 g/dL (6.3-8.2)
[2025-02-02 16:15] VITALS: TEMP 98
[2025-02-02] MEDS: LABETALOL 5 MG/ML VIAL MDV IVP STA (16:15)
[2025-02-02 16:46] VITALS: BP 153/85; PULSE 54; RESP 16
== END 2025-02-02 17:11 | disposition home or self-care (01) ==
LOC: EC 13:33
DX: I10 Essential (primary) hypertension (principal); F17.200 Nicotine dependence, unspecified, uncomplicated; Z88.6 Allergy status to analgesic agent; Z88.2 Allergy status to sulfonamides; Z91.013 Allergy to seafood
CPT/HCPCS: 36415; 93005; 80053; 85025; 70450; 99284; 96374; 96375 ×3; 96361; J1200; J2405; J0131; J1920